=== PATIENT | male | born 1980 | race Caucasian/White ===

== ENCOUNTER 2016-04-15 12:47 | Emergency (ER) | payer SELFPAY ==
[~2016-04-15] VITALS: Ht 177.8 cm; Wt 74.0 kg
[2016-04-15 13:00] VITALS: BP 132/90; PULSE 81; RESP 16; TEMP 97.9; O2SAT 93
[2016-04-15] MEDS ORDERED: CEPH500C PO (13:10)
[2016-04-15] MEDS ORDERED: TAMS0.4C4 PO (13:10)
[2016-04-15] MEDS ORDERED: HYDR-3516 PO (13:10)
[2016-04-15] MEDS ORDERED: SODIUM CHLOR 0.9% 1000 ML INJ 1,000 ML IV ONE (13:37)
[2016-04-15] MEDS ORDERED: MORPHINE SULFATE 4 MG/ML INJ IV ONE (13:45)
[2016-04-15] MEDS ORDERED: ONDANSETRON HCL 4 MG/2 ML VIAL IVP ONE (13:45)
[2016-04-15] MEDS ORDERED: KETOROLAC TROMETHAMINE 30 MG/ML (IVP) VIAL IVP ONE (13:45)
[2016-04-15] MEDS ORDERED: SODIUM CHLORIDE 0.9% FLUSH 5 ML FLUSH IVF PRN (13:45)
[2016-04-15 14:10] VITALS: RESP 16
--- NOTE | 2016-04-15 14:15 | PD ---
HPI Chief Complaint: Flank/Kidney Pain Time Seen by Provider: 13:37 Travel History International Travel<30 days: No Contact w/Intl Traveler<30days: No Traveled to known affect area: No History of Present Illness HPI Patient presents with complaints of bilateral flank pain radiating to his groin. ER evaluation in [facility] 10 days ago revealed kidney stones. Per the patient they recommended some sort of surgical intervention however the patient declined and returned home. Compliant with pain medications, approximately get on the water today and Flomax. Reports increased pain nausea and vomiting for the last 24-48 hours. Patient does not know the size of the stones. PFSH Past Medical History Kidney Stones: Yes Tetanus Vaccination: < 5 Years Influenza Vaccination: No Past Surgical History Other Surgery: Yes ("FATTY TUMORS REMOVED") Social History Alcohol Use: No Tobacco Use: No Substance Use: No Allergies-Medications (Allergen,Severity, Reaction): Coded Allergies: No Known Allergies (Unverified , 04/15/16) Reported Meds & Prescriptions Reported Meds & Active Scripts Active Hydrocodone-Acetaminophen 10-325 mg Tab 0.5-1 Tab PO Q4H PRN Zofran (Ondansetron HCl) 4 Mg Tab 4 Mg PO Q6HR PRN Reported Hydrocodone-Acetaminophen 5-325 mg Tab 1 Tab PO Q6H PRN Cephalexin 500 Mg Cap 500 Mg PO Q8H Tamsulosin (Tamsulosin HCl) 0.4 Mg Cap 0.4 Mg PO HS Review of Systems Gastrointestinal: Positive: Nausea, Vomiting Genitourinary: Positive: Flank Pain Physical Exam Narrative GENERAL: Well-nourished, well-developed patient. SKIN: Warm and dry. HEAD: Normocephalic. EYES: No scleral icterus. No injection or drainage. NECK: Supple, trachea midline. No JVD or lymphadenopathy. CARDIOVASCULAR: Regular rate and rhythm without murmurs, gallops, or rubs. RESPIRATORY: Breath sounds equal bilaterally. No accessory muscle use. GASTROINTESTINAL: Abdomen soft, non-tender, nondistended. MUSCULOSKELETAL: No cyanosis, or edema. BACK: Nontender without obvious deformity. No CVA tenderness. Data Data Last Documented VS Vital Signs Date Time Temp Pulse Resp B/P Pulse Ox O2 Delivery O2 Flow Rate FiO2 04/15/16 14:10 16 04/15/16 13:00 97.9 81 132/90 93 Orders Ecg Monitoring (04/15/16 13:37) Iv Access Insert/Monitor (04/15/16 13:37) Ketorolac Inj (Toradol Inj) (04/15/16 13:45) Morphine Inj (Morphine Inj) (04/15/16 13:45) Ondansetron Inj (Zofran Inj) (04/15/16 13:45) Sodium Chloride 0.9% Flush (Ns Flush) (04/15/16 13:45) Sodium Chlor 0.9% 1000 Ml Inj (Ns 1000 M (04/15/16 13:37) Ct Abd/Pel W/O Iv Contrast (04/15/16 13:41) MDM Medical Decision Making Medical Screen Exam Complete: Yes Emergency Medical Condition: Yes Differential Diagnosis Nephrolithiasis, urinary retention, hydronephrosis Narrative Course Assessment and plan discussed with patient and at bedside Last 72 hours Impressions Abdomen/Pelvis CT 04/15/16 1341 Signed Impressions: Service Date/Time: Friday, April 15, 2016 14:11 - CONCLUSION: 1. Mild obstructive uropathy on the right secondary to UVJ calculus measuring 5 mm. 2. Punctate nonobstructing bilateral renal calculi. Suraj Harris MD Diagnosis Primary Impression: Nephrolithiasis Patient Instructions: Narcotic given in the ED, General Instructions Additional Instructions: Encouraged increase fluids to 1-2 gallons of water per day. Encouraged to continue Flomax. Additional antinausea and pain medication provided. Mandatory referrals for urology submitted. Med/Other Pt SpecificInfo: Prescription(s) given Scripts Hydrocodone-Acetaminophen 10-325 mg Tab0.5-1 Tab PO Q4H PRN (PAIN) #30 TAB Ref 0 Prov:Dallas Ramos MD 04/15/16 Ondansetron (Zofran)4 Mg Tab4 Mg PO Q6HR PRN (NAUSEA OR VOMITING) #30 TAB Ref 0 Prov:Dallas Ramos MD 04/15/16 Disposition: 01 DISCHARGE HOME Condition: Good Dallas Ramos MD Apr 15, 2016 14:15
--- NOTE | 2016-04-15 14:35 | RADHPO ---
EXAM DATE/TIME: 04/15/2016 14:11 [place] COMPARISON: No previous studies available for comparison. EXTERNAL COMPARISON : [facility] INDICATIONS : Bilateral flank pain for ten days. ORAL CONTRAST: No oral contrast ingested. RADIATION DOSE: 10.48 CTDIvol (mGy) MEDICAL HISTORY : Renal calculi. SURGICAL HISTORY : fatty tumors removed ENCOUNTER: Initial ACUITY: 2 weeks PAIN SCALE: 10/10 LOCATION: Bilateral flank TECHNIQUE: Volumetric scanning of the abdomen and pelvis was performed. Using automated exposure control and ad justment of the mA and/or kV according to patient size, radiation dose was kept as low as reasonably achievable to obtain optimal diagnostic quality images. FINDINGS: LOWER LUNGS: The visualized lower lungs are clear. LIVER: Homogeneous density without lesion. There is no dilation of the biliary tree. No calcified gallston es. SPLEEN: Normal size without lesion. PANCREAS: Within normal limits. KIDNEYS: Normal in size and shape. There is no mass or hydronephrosis the left. A few punctate bilateral nono bstructing renal calculi measuring 2-3 mm in size. Mild hydronephrosis on the right and hydroureter. ADRENAL GLANDS: Within normal limits. VASCULAR: There is no aortic aneurysm. BOWEL/MESENTERY: The stomach, small bowel, and colon demonstrate no acute abnormality. There is no free intraperitone al air or fluid. ABDOMINAL WALL: Within normal limits. RETROPERITONEUM: There is no lymphadenopathy. BLADDER: Right UVJ calculus measuring 5 mm. No wall thickening or mass. REPRODUCTIVE: Within normal limits. INGUINAL: There is no lymphadenopathy or hernia. MUSCULOSKELETAL: Within normal limits for patient age. CONCLUSION: 1. Mild obstructive uropathy on the right secondary to UVJ calculus measuring 5 mm. 2. Punctate nonobstructing bilateral renal calculi. Suraj Harris MD on April 15, 2016 at 14:32 Board Certified Radiologist. This report was verified electronically.
[2016-04-15] MEDS ORDERED: HYDR-3583 PO (14:46)
[2016-04-15] MEDS ORDERED: ZOFR4TAB PO (14:46)
[2016-04-15 15:15] VITALS: BP 133/81
== END 2016-04-15 15:15 | disposition home or self-care (01) ==
LOC: PHED 12:47
DX: N20.0 Calculus of kidney (principal)
CPT/HCPCS: 74176; 96374; 96375; 99284; J1885; J2270; J2405; J7030